=== PATIENT | male | born 1970 | race Caucasian/White ===

== ENCOUNTER 2018-11-08 06:32 | Day surgery (SDC) | payer OTHER ==
[~2018-11-08] VITALS: Ht 180.3 cm; Wt 108.0 kg
--- NOTE | ~2018-11-08 | OR ---
[facility] [address], [place] [address] Draft DATE OF OPERATION: 11/08/2018 SURGEON: Abhinav Sexton MD PREOPERATIVE DIAGNOSES: 1. Personal history of colonic polyps (age 44, 2015). 2. Internal hemorrhoids. POSTOPERATIVE DIAGNOSES: 1. Llcmhcp-yw-empkcvxk sigmoid diverticulosis. 2. Nblvcax-jd-jsbitcvc internal hemorrhoids. PROCEDURE: Colonoscopy without biopsy. ESTIMATED BLOOD LOSS: None. INDICATIONS: Gio is a 48-year-old gentleman from our [facility]. He was asked to see me for a followup colonoscopy. In 2014 at the age of 44, he had a colonoscopy performed for rectal bleeding. He had internal hemorrhoids along with a polyp in the transverse colon and sigmoid colon. These were small at 3 and 5 mm. One was tubular, the other was a tubulovillous adenomatous polyp. There was no high-grade dysplasia. He had been asked to return in 3 years. I had met with Gio in the office. I reviewed with him the nature of the colonoscopy along with its risks including, but not limited to gas, bloating, crampy abdominal pain, bleeding, perforation requiring surgery, and missed diagnosis. We also reviewed the need for IV conscious sedation. He had expressed understanding and wished to proceed. PROCEDURE NOTE: Gio was taken into our endoscopy suite and placed in the left lateral decubitus position. He was given a total of 6 mg of Versed and 125 mcg of fentanyl to cover the case. A digital rectal exam was performed and he does have moderately enlarged and moderately indurated prostate gland. The right is more prominent than the left. No evidence of external hemorrhoids. The adult colonoscope was introduced and advanced quite readily into the cecum itself under direct visualization. His prep was good. The appendiceal orifice and the ileocecal valve were easily visualized. We took pictures throughout for photodocumentation. The scope was slowly withdrawn. We saw no polyps on this occasion. He does have sigmoid diverticulosis. They were alapyuh-ti-tjasdywi in PATIENT NAME: GIO SUBRAMANIAN OPERATIVE REPORT DATE OF : 70 REPORT #: [id number] PHYSICIAN: ABHINAV SEXTON MD PCP: MANUELA MCKEON MD REPORT IS CONFIDENTIAL AND NOT TO BE RELEASED WITHOUT AUTHORIZATION [facility] [address], [place] [address] Draft size, [id number] in number, and scattered about. Once in the rectum, the scope had been retroflexed. He does have oebssxk-ee-ympeqdds internal hemorrhoid tissue. After this, the gas was suctioned out and colonoscope removed. Gio tolerated the procedure quite well. RECOMMENDATIONS: I will see Gio back in the office in the next few weeks to review his results. Due to his personal history of colonic polyps, he needs colonoscopy every 5 years for rest of his life. Abhinav Sexton MD ALB/GHAZALAL /[id number] cc: MD Abhinav Abraham MD Copies: RICHA MOSQUEDA MD, ANDREW L MD ~ PATIENT NAME: GIO SUBRAMANIAN [place] [facility] O[facility] REPORT DATE OF : 70 REPORT #: [id number] PHYSICIAN: ABHINAV SEXTON MD PCP: MANUELA MCKEON MD REPORT IS CONFIDENTIAL AND NOT TO BE RELEASED WITHOUT AUTHORIZATION
[~2018-11-08 06:32] MED LIST: VENTOLIN HFA18 GM INH
--- NOTE | 2018-11-08 08:11 | NUR ---
11/08/18 0811 Barby Cano 0800- PT ARRIVES TO PACU ALERT AND ORIENTED. PT REPORTS NO NAUSEA, PAIN, OR DIZZINESS. RESP EVEN AND UNLABORED. OXYGEN SAT HIGH 90'S TO 100% ON 3L VIA NC. 0806- OXYGEN TITRATED OFF. DR. SEXTON AT THE BEDSIDE. 0808- PT GIVEN ORANGE JUICE TO DRINK. TOLERATING WELL.
--- NOTE | 2018-11-08 14:03 | NUR ---
PT ALERT, ORIENTED AND ACCOMPANIED BY 2 EOCI GUARDS. PT STATED HE HAS HAD SCOPES BEFORE, AND SEEMED VERY TIMID. NOT SURE IF BECAUSE OF PROCEDUES, OR PRESENCE OF GUARDS. GAVE ENCOURAGEMENT, PT REQUESTED PRAYER. WILL FOLLOW NEEDED
== END 2018-11-08 08:30 | disposition home or self-care (01) ==
LOC: DS 06:32 → OPS 06:32 → DS 06:45 → OPS 06:45
PROVIDERS: Colon & Rectal Surgery
PROC: 0DJD8ZZ Inspection of Lower Intestinal Tract, Via Natural or Artificial Opening Endoscopic (ICD-10-PCS; principal; 2018-11-08 06:45)
DX: Z12.11 Encounter for screening for malignant neoplasm of colon (principal); K57.30 Diverticulosis of large intestine without perforation or abscess without bleeding; K64.8 Other hemorrhoids; N42.89 Other specified disorders of prostate; Z86.010 Personal history of colon polyps; Z98.890 Other specified postprocedural states; Z88.0 Allergy status to penicillin
CPT/HCPCS: 99153; G0500; J2250; J3010; J7120